=== PATIENT | female | born 1975 | race Caucasian/White ===

== ENCOUNTER 2019-08-10 08:00 | Outpatient (CLI) | payer MEDICAID | END 2019-08-10 23:59 | disposition home or self-care (01) | LOC: COV 08:00 | PROVIDERS: ATTEND Family Medicine | DX: R05 Cough (principal) | CPT/HCPCS: 81599 ==

== ENCOUNTER 2019-09-18 14:43 | Emergency (ER) | payer OTHER, MEDICAID ==
[2019-09-18 14:48] VITALS: BP 146/71
[2019-09-18] MEDS ORDERED: TETANUS/DIPHTHERIA/PERTUSSIS 0.5 ML SYRINGE IM ONE (15:09)
--- NOTE | 2019-09-18 15:10 | ED Physician Documentation ---
PD HPI MAJOR BURN - Stated complaint Stated Complaint: R FOOT BURN - Chief complaint Chief Complaint: Burn - History obtained from History obtained from: Patient (Spilled hot coffee on the top of the right foot at work just prior to arrival. Pain is minimal to moderate and declines pain medication. Tetanus is unknown.) Review of Systems Constitutional: reports: Reviewed and negative Cardiac: reports: Reviewed and negative Respiratory: reports: Reviewed and negative PD PAST MEDICAL HISTORY - Past Surgical History Past Surgical History: Yes /[employer]: Tubal ligation, Hysterectomy - Present Medications Home Medications: Ambulatory Orders Medication Instructions Recorded Confirmed Cyclobenzaprine [Flexeril] DAILY 10/11/12 10/11/12 HYDROcod/ACETAM 5/325 [Vicodin 1 - 2 ea PO Q6H PRN #15 tablet 10/11/12 5/325] Naproxen [Naprosyn] 500 mg PO BID PRN 10/11/12 10/11/12 - Allergies Allergies/Adverse Reactions: Allergies Allergy/AdvReac Type Severity Reaction Status Date / Time ampicillin [Ampicillin] AdvReac Intermediate Rash Verified 09/18/19 14:46 - Social History Does the pt smoke?: Yes Smoking Status: Current every day smoker Does the pt drink ETOH?: No Does the pt have substance abuse?: No - Immunizations Immunizations are current?: No Immunizations: TDAP >10years/unknown - POLST Patient has POLST: No PD ED PE NORMAL - Vitals Vital signs reviewed: Yes - General General: Alert and oriented X 3, No acute distress - Extremities Extremities: Other (He has a partial-thickness burn of the top of the right foot measuring about 4 cm x 2 cm with a little bit of desquamation.) - Neuro Neuro: Alert and oriented X 3, lining maker 2-12 intact, Normal speech Results - Vitals Vitals: Vital Signs - 24 hr 09/18/19 14:46 Temperature 36.9 C Heart Rate 120 H Respiratory 18 Rate Blood Pressure 146/71 H O2 Saturation 97 Oxygen O2 Source Room air PD MEDICAL DECISION MAKING - ED course ED course: 43-year-old woman with a second-degree small right foot burn. Declined pain medication. Tetanus was updated. Wound was dressed with Vaseline gauze and a wrap. Counseled on wound care. Departure - Departure Disposition: 01 Home, Self Care Clinical Impression: Burn of foot Qualifiers: Encounter type: initial encounter Laterality: right Burn degree: partial thickness (2nd degree) Qualified Code(s): T25.221A - Burn of second degree of right foot, initial encounter Condition: Good Record reviewed to determine appropriate education?: Yes Instructions: ED Burn D 2nd Comments: For wound care, you can wash it briefly with soap and water, then apply bacitracin ointment which is available [id number] and a loose gauze wrap. I think you will only have to do this for a few days. Return for spreading redness or insufferable pain.
== END 2019-09-18 15:36 | disposition home or self-care (01) ==
LOC: ED 14:43
DX: T25.221A Burn of second degree of right foot, initial encounter (principal); X10.0XXA Contact with hot drinks, initial encounter; Y92.89 Other specified places as the place of occurrence of the external cause; Y99.0 Civilian activity done for income or pay; F17.200 Nicotine dependence, unspecified, uncomplicated
CPT/HCPCS: 90471; 99283